=== PATIENT | female | born 1975 | race Caucasian/White ===

== ENCOUNTER 2017-02-28 16:29 | Emergency (ER) | payer OTHER ==
--- NOTE | 2017-02-28 17:04 | ED Physician Documentation ---
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 Pt has pain in the L hand over the metacarpels.) - ROS CONST: no problems EYES/ENT: none CVS/RESP: none GI/: none MS/SKIN/LYMPH: other (L hand injury) - PAST HX Past History: other (ortho surgery) Surgeries/Procedures: other (ortho surgery) Allergies/Adverse Reactions: Allergies Allergy/AdvReac Type Severity Reaction Status Date / Time No Known Allergies Allergy Unverified 02/28/17 16:37 Home Medications: Ambulatory Orders Medication Instructions Recorded Bupropion HCl [Wellbutrin] 100 mg PO 02/28/17 Venlafaxine HCl [Effexor] 100 mg PO 02/28/17 - SOCIAL HX Smoking History: cigarettes - FAMILY HX Family History: No - VITAL SIGNS Vital Signs: Vital Signs Temp Pulse Resp BP Pulse Ox 86 18 156/79 99 02/28/17 16:30 02/28/17 16:30 02/28/17 16:30 02/28/17 16:30 - REVIEWED ASSESSMENTS Nursing Assessment Reviewed: Yes Vitals Reviewed: Yes Progress - Progress Progress: x-ray L hand: Fracture 4th metacarpal. gutter splint applied to L hand. Rx [place] (5/325). Take one or two every 4 to 6 hrs as needed for moderate to severe pain. Disp: 20 Follow up with orthopedic doctor either at [facility] Tel. [phone] (ask for Orthopedic Clinic) or at [facility] Tel. [phone]. Call for next available appointment. ED Results Lab/Radiology - Orders Orders: ED Orders Category Date Time Status HAND 3 VIEWS OR MORE [RAD] Stat Exams 02/28/17 Taken General Adult Physical Exam - PHYSICAL EXAM GENERAL APPEARANCE: mild distress NECK: normal inspection, supple RESPIRATORY: no resp distress, chest non-tender CVS: reg rate & rhythm, heart sounds normal BACK: normal inspection SKIN: warm/dry, normal color EXTREMITIES: other (L hand pain over metacarpels 4 & 5, minimal swelling.) NEURO: oriented X3, motor nml, sensation nml Discharge Clincal Impression: Fracture of L 4th metacarpal Referrals: Primary Doctor,No [Primary Care Provider] - Condition: Good Disposition: 01 HOME, SELF-CARE Decision to Admit: NO Decision Time: 17:20
[2017-02-28 17:25] VITALS: BP 148/68
--- NOTE | 2017-02-28 18:03 | Diagnostic Imaging Report ---
SOCORRO BENITEZ [facility] [id number] [facility] [address] [place] [address]. [id number] Report Submission Date: Feb 28, 2017 5:05:05 PM MANAGEMENT TECH Patient Study Name: MONET SPENCER Date: Feb 28, 2017 4:47:00 PM MANAGEMENT TECH Modality Type: CR Gender: F Description: UPPER EXTREMITY : 73 Institution: [facility] Physician: SOCORRO BENITEZ Examination: Plain film hand History: Injury Comparison exams: None available Findings: 3 views the hand demonstrates oblique fracture involving the 4th metacarpal. Remaining cortical margins are within normal limits. No soft tissue abnormality. Impression: Fracture 4th metacarpal. Electronically signed on Feb 28, 2017 5:05:05 PM MANAGEMENT TECH by: Agustin LINDA
== END 2017-02-28 17:24 | disposition home or self-care (01) ==
LOC: ED 16:29
DX: S62.625A Displaced fracture of middle phalanx of left ring finger, initial encounter for closed fracture (principal); W10.9XXA Fall (on) (from) unspecified stairs and steps, initial encounter; Y93.9 Activity, unspecified; Y92.9 Unspecified place or not applicable; Y99.0 Civilian activity done for income or pay
CPT/HCPCS: 73130; 99283